=== PATIENT | male | born 1945 | race Caucasian/White ===

== ENCOUNTER → 2020-04-23 13:35 | Outpatient (BNVA) | payer MEDICARE, SELFPAY | PROVIDERS: PCP Physician Assistant Medical; Referring Provider Physician Assistant Medical; Visit Provider Psychiatry & Neurology Neurology | DX: R26.0 Ataxic gait (principal); H55.00 Unspecified nystagmus; R33.8 Other retention of urine; G62.9 Polyneuropathy, unspecified | CPT/HCPCS: 99205 ==

== ENCOUNTER → 2020-05-20 09:46 | Outpatient (BNVA) | payer MEDICARE, SELFPAY | PROVIDERS: PCP Physician Assistant Medical; Referring Provider Physician Assistant Medical; Visit Provider Psychiatry & Neurology Neurology | DX: R26.0 Ataxic gait (principal); H50.012 Monocular esotropia, left eye; H55.00 Unspecified nystagmus; G95.9 Disease of spinal cord, unspecified | CPT/HCPCS: 99214 ==